=== PATIENT | female | born 1985 | race African-American/Black ===

== ENCOUNTER 2019-04-15 00:34 | Emergency (ER) | payer SELFPAY ==
[~2019-04-15] VITALS: Ht 170.2 cm; Wt 61.2 kg
[2019-04-15] MEDS ORDERED: IV NS 0.9% 1,000 ML BAG IV ONE (01:00)
[2019-04-15] MEDS ORDERED: ONDANSETRON HCL/PF 4 MG/2 ML VIAL IV ONE ×2 (01:00→03:00)
[2019-04-15] MEDS ORDERED: ONDANSETRON HCL/PF 4 MG/2 ML VIAL ONE ×2 (01:02→02:50)
[2019-04-15 01:10] LABS: BASOPHILS # (AUTO) 0.1 /CMM (0.0-0.2); BASOPHILS % (AUTO) 0.4 % (0.0-2.0); EOSINOPHILS % (AUTO) 1.5 % (0.0-6.0); HEMATOCRIT 42 % (33-45); HEMOGLOBIN 14.5 g/dL (11.5-14.8); LYMPHOCYTES # (AUTO) 2.9 /CMM (0.8-4.8); LYMPHOCYTES % (AUTO) 19.2 % (20.0-44.0); MEAN CORPUSCULAR HGB CONC 34 g/dl (31.0-36.0); MEAN CORPUSCULAR VOLUME 86 fL (82-100); MONOCYTES # (AUTO) 0.9 /CMM (0.1-1.30); MONOCYTES % (AUTO) 5.9 % (2.0-12.0); NEUTROPHILS # (AUTO) 10.9 /CMM (1.8-8.9); PLATELET COUNT (AUTO) 224 /CMM (150-450); RED BLOOD CELL COUNT(AUTO) 4.94 MIL/uL (4.0-5.2); WHITE BLOOD COUNT (AUTO) 14.9 K/uL (4.3-11.0)
--- NOTE | 2019-04-15 01:10 | NUR ---
PT MEDICATED ORDERED.
[2019-04-15 01:21] LABS: CALCIUM, SERUM 8.5 mg/dL (8.5-10.1); CARBON DIOXIDE 20 mmol/L (21-32); CHLORIDE 99 mmol/L (98-107); CREATININE 0.9 mg/dL (0.6-1.3); GLUCOSE 171 mg/dL (74-106); POTASSIUM 3.1 mmol/L (3.5-5.1); SODIUM SERUM 134 mmol/L (136-145); UREA NITROGEN, BLOOD 6 mg/dL (7-18)
--- NOTE | 2019-04-15 01:21 | NUR ---
PT FRIEND AT BEDSIDE.
[2019-04-15 01:26] LABS: ACETAMINOPHEN 2 ug/ml (10-30); ALANINE AMINOTRANSFERASE 12 U/L (12-78); ALBUMIN 3.9 g/dL (3.4-5.0); ALCOHOL, BLOOD < 3 mg/dL (0-0); ALKALINE PHOSPHATASE 61 U/L (46-116); ASPARTATE AMINOTRANSFERASE 10 U/L (15-37); BILIRUBIN,DIRECT 0.3 mg/dL (0.0-0.2); BILIRUBIN,TOTAL 1.1 mg/dL (0.2-1.0); TOTAL PROTEIN, SERUM 7.1 g/dL (6.4-8.2)
[2019-04-15 01:27] LABS: SALICYLATE 0.6 mg/dL (2.8-20.0)
[2019-04-15] MEDS ORDERED: POTASSIUM CHLORIDE 20 MEQ TAB.PRT.SR PO ONE ×2 (01:30→07:50)
--- NOTE | 2019-04-15 01:32 | NUR ---
PT PLACED ON BEDPAN BY FEMALE EMT MIAH, PT UNABLE TO PROVIDE URINE SAMPLE AT THIS TIME.
--- NOTE | 2019-04-15 01:46 | NUR ---
PT REMAINS VERY RESTLESS, UNCOOPERATIVE. ER MD AT [facility] TO RE-EVAL PT WITH ORDERS RECEIVED. WILL CARRY OUT ORDERS.
[2019-04-15] MEDS ORDERED: LORAZEPAM INJ 2 MG/ML VIAL ONE ×2 (01:48→02:20)
--- NOTE | 2019-04-15 01:51 | NUR ---
PT MEDICATED ORDERED. WILL CONTINUE TO MONITOR PT CLOSELY.
[2019-04-15] MEDS ORDERED: LORAZEPAM INJ 2 MG/ML VIAL IV ONE ×2 (02:00→04:00)
--- NOTE | 2019-04-15 02:22 | NUR ---
PT REMAINS VERY RESTLESS, TOSSING AROUND IN BED, ER MD MADE AWARE. WILL CONTINUE TO MONITOR PT CLOSELY.
[2019-04-15] MEDS ORDERED: diphenhydrAMINE HCL 50 MG/ML VIAL IV ONE (03:00)
--- NOTE | 2019-04-15 03:00 | NUR ---
NOTED PT VOMITING. ER MD MADE AWARE WITH ORDERS RECEIVED. WILL CALLRY OUT ORDERS.
[2019-04-15] MEDS ORDERED: diphenhydrAMINE HCL 50 MG/ML VIAL ONE (03:01)
--- NOTE | 2019-04-15 03:02 | NUR ---
PT MEDICATED ORDERED.
[2019-04-15 03:31] LABS: APPEARANCE,URINE Clear (CLEAR); BILIRUBIN,URINE Negative (NEGATIVE); BLOOD, URINE Negative Ery/uL (NEGATIVE); COLOR,URINE Yellow (YELLOW); KETONES,URINE >=160 (NEGATIVE); LEUKOCYTE ESTERASE ,URINE Negative (NEGATIVE); NITRITE, URINE Negative (NEGATIVE); PROTEIN,URINE Negative (NEGATIVE); UGLUCOSE Negative (NEGATIVE); UROBILINOGEN,URINE 0.2 EU/dL (0.2)
--- NOTE | 2019-04-15 03:44 | NUR ---
PT TRASNPORTED TO RADIOLOGY FOR CT HEAD.
[2019-04-15 03:51] LABS: BACTERIA,URINE Moderate /HPF (None Seen); RBC,URINE 0-2 /HPF (0-2); SQUAMOUS EPITHELIAL CELL,UR Few /HPF (None Seen)
--- NOTE | 2019-04-15 04:02 | NUR ---
PT BACK FROM RADIOLOGY. PENDING CT HEAD RESULT.
--- NOTE | 2019-04-15 04:51 | NUR ---
pt got out of bed and started urinating on the floor, total pt care done. assisted pt back to bed. pt moved to bed 13 for close monitoring with sitter at bedside.
--- NOTE | 2019-04-15 07:12 | NUR ---
pt friend Jordi lynne
[2019-04-15 11:30] VITALS: BP 133/85
--- NOTE | 2019-04-15 11:39 | NUR ---
Patient discharged to home in stable condition. Written and verbal after care instructions given. Patient verbalizes understanding of instruction.
== END 2019-04-15 11:47 | disposition home or self-care (01) ==
LOC: ER 00:41
DX: F12.10 Cannabis abuse, uncomplicated (principal); R41.82 Altered mental status, unspecified
CPT/HCPCS: 36415; 70450; 80048; 80076; 80305; 80307; 80329; 81001; 84703; 85025; 87086; 96361; 96374; 96375; 96376; 99284; G0480; J1200; J2060 ×2; J2405 ×2; J7030; 81000-TC; 87186-TC

== ENCOUNTER 2019-04-22 21:18 | Emergency (ER) | payer SELFPAY ==
[~2019-04-22] VITALS: Ht 162.6 cm; Wt 62.1 kg
[2019-04-22] MEDS ORDERED: LORAZEPAM 1 MG TABLET ONE (21:53)
--- NOTE | 2019-04-22 21:55 | NUR ---
BIB SELF. TO ER BED 11. AAOX4. BREATHING RAPID BUT NOT IN RESP DISTRESS. PT IS ANXIOUS AND CRYING. C/O THROBBING HEADACHE AT THE BACK OF THE HEAD SINCE THURSDAY. PT REPORTS GOING TO ER YESTERDAY BUT PAIN WENT BACK. STONEY BUCKNER AT BEDSIDE FOR EVAL AND ORDERS RECEIVED.
[2019-04-22] MEDS ORDERED: LORAZEPAM 1 MG TABLET PO ONE (22:00)
[2019-04-22] MEDS ORDERED: KETOROLAC TROMETHAMINE INJ 30 MG/ML VIAL IV ONE (22:00)
[2019-04-22] MEDS ORDERED: METOCLOPRAMIDE HCL 10 MG/2 ML VIAL IV ONE (22:00)
[2019-04-22] MEDS ORDERED: IV NS 0.9% 1,000 ML BAG IV ONE (22:00)
[2019-04-22] MEDS ORDERED: diphenhydrAMINE HCL 50 MG/ML VIAL IV ONE (22:00)
[2019-04-22 22:07] LABS: BASOPHILS % (AUTO) 0.3 % (0.0-2.0); EOSINOPHILS % (AUTO) 1.7 % (0.0-6.0); HEMATOCRIT 44 % (33-45); HEMOGLOBIN 14.8 g/dL (11.5-14.8); LYMPHOCYTES # (AUTO) 2.3 /CMM (0.8-4.8); LYMPHOCYTES % (AUTO) 16.4 % (20.0-44.0); MEAN CORPUSCULAR HGB CONC 34 g/dl (31.0-36.0); MEAN CORPUSCULAR VOLUME 86 fL (82-100); MONOCYTES # (AUTO) 0.6 /CMM (0.1-1.30); MONOCYTES % (AUTO) 4.1 % (2.0-12.0); NEUTROPHILS # (AUTO) 10.9 /CMM (1.8-8.9); NEUTROPHILS % (AUTO) 77.5 % (43.0-81.0); PLATELET COUNT (AUTO) 226 /CMM (150-450); RED BLOOD CELL COUNT(AUTO) 5.07 MIL/uL (4.0-5.2)
[2019-04-22] MEDS ORDERED: diphenhydrAMINE HCL 50 MG/ML VIAL ONE (22:09)
[2019-04-22] MEDS ORDERED: METOCLOPRAMIDE HCL 10 MG/2 ML VIAL ONE (22:09)
[2019-04-22] MEDS ORDERED: KETOROLAC TROMETHAMINE INJ 30 MG/ML VIAL ONE (22:09)
--- NOTE | 2019-04-22 22:12 | NUR ---
URINE SENT TO LAB
[2019-04-22 22:15] LABS: CALCIUM, SERUM 8.7 mg/dL (8.5-10.1); CREATININE 0.8 mg/dL (0.6-1.3)
[2019-04-22 22:18] LABS: POTASSIUM 2.8 mmol/L (3.5-5.1)
[2019-04-22] MEDS ORDERED: POTASSIUM CHLORIDE 20 MEQ TAB.PRT.SR PO ONE ×2 (22:27→22:30)
[2019-04-22 22:30] LABS: APPEARANCE,URINE Clear (CLEAR); BACTERIA,URINE None seen /HPF (None Seen); BILIRUBIN,URINE Negative (NEGATIVE); BLOOD, URINE Negative Ery/uL (NEGATIVE); COLOR,URINE Yellow (YELLOW); KETONES,URINE 40 (NEGATIVE); LEUKOCYTE ESTERASE ,URINE Trace (NEGATIVE); NITRITE, URINE Negative (NEGATIVE); PH,URINE 8.5 (5.0-8.0); PROTEIN,URINE Negative (NEGATIVE); RBC,URINE 0-2 /HPF (0-2); UGLUCOSE Negative (NEGATIVE); UROBILINOGEN,URINE 0.2 EU/dL (0.2)
[2019-04-22 22:31] LABS: SQUAMOUS EPITHELIAL CELL,UR Few /HPF (None Seen)
[2019-04-22] MEDS ORDERED: HYDROCODONE/APAP 5/325MG 1 EACH TABLET ONE (23:53)
[2019-04-23] MEDS ORDERED: HYDROCODONE/APAP 5/325MG 1 EACH TABLET PO ONE
--- NOTE | 2019-04-23 01:10 | NUR ---
Patient discharged to home in stable condition. Written and verbal after care instructions given. Patient verbalizes understanding of instruction.IV removed. Catheter intact and site benign. Pressure and 4x4 applied to site. No bleeding noted.Pt ambulatory with a steady gait
[2019-04-23 01:11] VITALS: BP 124/88
== END 2019-04-23 00:50 | disposition home or self-care (01) ==
LOC: ER 21:21
DX: R51 Headache (principal); E87.6 Hypokalemia; R11.2 Nausea with vomiting, unspecified; F17.200 Nicotine dependence, unspecified, uncomplicated; Z60.2 Problems related to living alone
CPT/HCPCS: 36415; 80048; 81001; 84703; 85025; 85730; 87086; 87186; 96361; 96374; 96375; 99284; J1200; J1885; J2765; J7030; 81000-TC